=== PATIENT | male | born 1990 | race Caucasian/White ===

== ENCOUNTER 2020-03-15 23:40 | Emergency (ER) | payer OTHER ==
[2020-03-15] MEDS ORDERED: GI Cocktail Oral Solution 30 ML PO ONE (23:59)
[2020-03-15] MEDS ORDERED: Sodium Chloride 0.9% 10 ML Syringe FLUSH PRN (23:59)
[2020-03-15] MEDS ORDERED: Sodium Chloride 0.9% 1,000 ML IV ONE (23:59)
[2020-03-15] MEDS ORDERED: Metoclopramide 10 MG/2 ML SDV IVPUSH ONE (23:59)
--- NOTE | 2020-03-16 00:06 | EDM.PDOC ---
ED HPI GENERAL MEDICAL PROBLEM - General Chief Complaint: Chest Pain Stated Complaint: HEART ISSUES Time Seen by Provider: 03/15/20 23:50 Source of Information: Reports: Patient, RN, RN Notes Reviewed History Limitations: Reports: No Limitations - History of Present Illness INITIAL COMMENTS - FREE TEXT/NARRATIVE: Patient presents to ER with complaint of chest pains that began just prior to arrival to the emergency department. Patient points to the epigastric area when describing his pain. Patient states he has been working on his house for the past 20 hours, has had little sleep, has drank quite a bit of coffee, and is a heavy smoker. Patient states the last thing he ate was Cuban food from a local Cuban restaurant. Patient states he eats that frequently. Patient states he has been trying to cut back on smoking the past few days. Patient states he feels he may be dehydrated, as he has not been drinking enough water or Gatorade. Patient denies any health problems except asthma. Only prescription medication is an albuterol inhaler. Denies any cardiac history. Onset: Today, Sudden Duration: Constant Location: Reports: Abdomen - Related Data Allergies Allergy/AdvReac Type Severity Reaction Status Date / Time No Known Allergies Allergy Verified 03/15/20 23:45 Home Meds: Home Meds Albuterol Sulfate [Albuterol Sulfate Hfa] 2 puff PO Q4H PRN 03/15/20 [History] Past Medical History HEENT History: Reports: Impaired Vision Respiratory History: Reports: Asthma - Infectious Disease History Infectious Disease History: Reports: Chicken Pox Social & Family History - Tobacco Use Smoking Status *Q: Current Every Day Smoker Years of Tobacco use: 12 Packs/Tins Daily: 1 - Caffeine Use Caffeine Use: Reports: Coffee - Recreational Drug Use Recreational Drug Use: No ED ROS GENERAL - Review of Systems Review Of Systems: Comprehensive ROS is negative, except as noted in HPI. ED EXAM, GENERAL - Physical Exam Exam: See Below Exam Limited By: No Limitations General Appearance: Alert, WD/WN, Moderate Distress Eye Exam: Bilateral Eye: EOMI, Normal Inspection Ears: Normal External Exam, Hearing Grossly Normal Nose: Normal Inspection Throat/Mouth: Normal Inspection, Normal Voice, No Airway Compromise Head: Atraumatic, Normocephalic Neck: Normal Inspection, Supple, Non-Tender, Full Range of Motion Respiratory/Chest: No Respiratory Distress, Lungs Clear, Normal Breath Sounds, No Accessory Muscle Use, Chest Non-Tender Cardiovascular: Normal Peripheral Pulses, Regular Rate, Rhythm, No Edema, No Gallop, No JVD, No Murmur, No Rub Peripheral Pulses: 2+: Radial (L), Radial (R) GI/Abdominal: Normal Bowel Sounds, Soft, Tender (epigastric) (Male) Exam: Deferred Rectal (Males) Exam: Deferred Back Exam: Normal Inspection, Full Range of Motion, NT Extremities: Normal Inspection, Normal Range of Motion, Non-Tender, Normal Capillary Refill, No Pedal Edema Neurological: Alert, Oriented, CN II-XII Intact, Normal Cognition, Normal Gait, Normal Reflexes, No Motor/Sensory Deficits Psychiatric: Normal Affect, Normal Mood, Anxious Skin Exam: Warm, Dry, Intact, Normal Color, No Rash Lymphatic: No Adenopathy Course - Vital Signs Last Recorded V/S: Last Vital Signs Temp 97.4 F 03/15/20 23:42 Pulse 115 H 03/15/20 23:42 Resp 20 03/15/20 23:42 BP 125/85 03/15/20 23:42 Pulse Ox 96 03/15/20 23:42 - Orders/Labs/Meds Orders: Active Orders 24 hr Category Date Time Status EKG 12 Lead [EKG Documentation Completion] [RC] URGENT Care 03/15/20 23:53 Active Peripheral IV Care [RC] . DIRECTED Care 03/15/20 23:59 Active Sodium Chloride 0.9% [Saline Flush] Med 03/15/20 23:59 Active 10 ml FLUSH ASDIRECTED PRN Peripheral IV Insertion Adult [OM.PC] Stat Oth 03/15/20 23:58 Ordered Medication Orders Sodium Chloride (Saline Flush) 10 ml FLUSH ASDIRECTED PRN PRN Reason: Keep Vein Open Last Admin: 03/16/20 00:07 Dose: 10 ml Labs: Laboratory Tests 03/16/20 03/16/20 Range/Units 00:10 00:10 WBC 10.3 H (5.0-10.0) 10^3/uL RBC 4.82 (4.6-6.2) 10^6/uL Hgb 15.8 (14.0-18.0) g/dL Hct 44.5 (40.0-54.0) % MCV 92.3 (80-100) fL MCH 32.8 (27.0-34.0) pg MCHC 35.5 H (33.0-35.0) g/dL Plt Count 245 (150-450) 10^3/uL Neut % (Auto) 53.9 (42.2-75.2) % Lymph % (Auto) 31.9 (20.5-50.1) % Toole % (Auto) 7.9 (2-8) % Eos % (Auto) 5.8 H (1.0-3.0) % Baso % (Auto) 0.5 (0.0-1.0) % Sodium 140 (136-145) mmol/L Potassium 3.9 (3.5-5.1) mmol/L Chloride 103 (98-107) mmol/L Carbon Dioxide 29 (21-32) mmol/L Anion Gap 11.9 (7-13) mEq/L BUN 17 (7-18) mg/dL Creatinine 1.13 (0.70-1.30) mg/dL Est Cr Clr Drug Dosing 109.99 mL/min Estimated GFR (MDRD) > 60 BUN/Creatinine Ratio 15.0 (No establ ref range) Glucose 117 H (74-99) mg/dL Calcium 9.1 (8.5-10.1) mg/dL Total Bilirubin 0.5 (0.2-1.0) mg/dL AST 24 (15-37) U/L ALT 45 (16-63) U/L Alkaline Phosphatase 84 (46-116) U/L Troponin I < 0.017 (0.000-0.056) ng/mL Total Protein 6.8 (6.4-8.2) g/dL Albumin 3.9 (3.4-5.0) g/dL Globulin 2.9 Albumin/Globulin Ratio 1.3 Meds: Medications Generic Name Dose Route Start Last Admin Trade Name Freq PRN Reason Stop Dose Admin Sodium Chloride 10 ml 03/15/20 23:59 03/16/20 00:07 Saline Flush FLUSH 10 ml ASDIRECTED PRN Administration Keep Vein Open Discontinued Medications Generic Name Dose Route Start Last Admin Trade Name Freq PRN Reason Stop Dose Admin Al Hydroxide/Mg Hydroxide 30 ml 03/15/20 23:59 03/16/20 00:05 Gi Cocktail PO 03/16/20 00:00 30 ml ONETIME ONE Administration Sodium Chloride 1,000 mls @ 999 mls/hr 03/15/20 23:59 03/16/20 00:06 Normal Saline IV 03/16/20 00:59 999 mls/hr .BOLUS ONE Administration Metoclopramide HCl 10 mg 03/15/20 23:59 03/16/20 00:06 Reglan IVPUSH 03/16/20 00:00 10 mg ONETIME ONE Administration - Radiology Interpretation Free Text/Narrative:: Chest xray: FINDINGS: Lungs: The lungs are symmetric, well expanded and clear. Pleural space: There are no pleural effusions. There is no pneumothorax. Heart/Mediastinum: The heart size is normal as are the mediastinal and hilar contours. The pulmonary vessels are normal. Bones/joints: No acute osseous pathology is identified. IMPRESSION: No acute cardiopulmonary disease process identified. Thank you for allowing us to participate in the care of your patient. Dictated and Authenticated by: Ai Streeter MD 03/16/2020 12:31 AM Central Time ([place] & [place]) See rad report Departure - Departure Time of Disposition: 01:01 Disposition: Home, Self-Care 01 Reason for Transfer *Q: Other Condition: Fair Clinical Impression: Acid indigestion GERD (gastroesophageal reflux disease) Qualifiers: Esophagitis presence: without esophagitis Qualified Code(s): K21.9 - Gastro- esophageal reflux disease without esophagitis Instructions: Indigestion, [id number], Food Choices for Gastroesophageal Reflux Disease, Adult, [id number], Heartburn, [id number], Nonspecific Chest Pain, Adult, [id number] Forms: ED Department Discharge Additional Instructions: Cut back on coffee intake Continue to cut back and attempt to quit smoking Stay away from spicy, acidic foods, follow the food guidelines for acid indigestion Follow up with your primary care facility May use TUMS over the counter as directed Return to the ER with any worsening of problems Sepsis Event Note - Evaluation Sepsis Screening Result: No Definite Risk - Focused Exam Vital Signs: Vital Signs Temp Pulse Resp BP Pulse Ox 03/15/20 23:42 97.4 F 115 H 20 125/85 96 Date Exam was Performed: 03/16/20 Time Exam was Performed: 01:01 - My Orders Last 24 Hours: My Active Orders 03/15/20 23:53 EKG 12 Lead [EKG Documentation Completion] [RC] URGENT 03/15/20 23:58 Peripheral IV Insertion Adult [OM.PC] Stat 03/15/20 23:59 Peripheral IV Care [RC] . DIRECTED Sodium Chloride 0.9% [Saline Flush] 10 ml FLUSH ASDIRECTED PRN - Assessment/Plan Last 24 Hours: My Active Orders 03/15/20 23:53 EKG 12 Lead [EKG Documentation Completion] [RC] URGENT 03/15/20 23:58 Peripheral IV Insertion Adult [OM.PC] Stat 03/15/20 23:59 Peripheral IV Care [RC] . DIRECTED Sodium Chloride 0.9% [Saline Flush] 10 ml FLUSH ASDIRECTED PRN
[2020-03-16 00:34] LABS: ANION GAP 11.9 mEq/L (7-13); CHLORIDE,CL 103 mmol/L (98-107); SODIUM,NA 140 mmol/L (136-145)
== END 2020-03-16 01:02 | disposition home or self-care (01) ==
LOC: DL.ED 23:40
DX: K21.9 Gastro-esophageal reflux disease without esophagitis (principal); J45.909 Unspecified asthma, uncomplicated; F17.210 Nicotine dependence, cigarettes, uncomplicated
CPT/HCPCS: 36415; 71045; 80053; 84484; 85025; 93005; 96361; 96374; 99285; A9270; J2765; J7030

== ENCOUNTER 2022-08-23 09:04 | Emergency (ER) | payer OTHER ==
[2022-08-23] MEDS ORDERED: Lidocaine/Prilocaine 2.5-2.5% Crm 5 GM Tube TOP ONE (22:20)
== END 2022-08-23 23:40 | disposition home or self-care (01) ==
LOC: DL.ED 09:04
DX: S01.511A Laceration without foreign body of lip, initial encounter (principal); W22.8XXA Striking against or struck by other objects, initial encounter
CPT/HCPCS: 12011; 99282

== ENCOUNTER 2022-11-08 08:50 | Emergency (ER) | payer OTHER ==
[2022-11-08] MEDS: Albuterol/Ipratropium 3.0-0.5 MG/3 ML Neb Soln NEB ONE (09:35)
[2022-11-08] MEDS: methylPREDNISolone Sodium Succinate 125 MG/2 ML SDV IVPUSH ONE (09:35)
[2022-11-08 09:44] LABS: CORONAVIRUS COVID-19 NAA NEGATIVE (NEGATIVE); RESPIRATORY SYNCYTIAL VIR NAA NEGATIVE (NEGATIVE)
== END 2022-11-08 10:56 | disposition home or self-care (01) ==
LOC: DL.ED 08:50
DX: J20.8 Acute bronchitis due to other specified organisms (principal); Z20.822 Contact with and (suspected) exposure to COVID-19; F17.210 Nicotine dependence, cigarettes, uncomplicated
CPT/HCPCS: 0241U; 71045; 96374; 99284; 99285-25; J2930; J7620-GY